=== PATIENT | male | born 1980 | race Caucasian/White ===

== ENCOUNTER 2020-09-19 12:14 | Emergency (ER) | payer OTHER ==
[2020-09-19 12:18] VITALS: RESP 18
[2020-09-19] MEDS ORDERED: HYDROmorphone 0.5 MG/0.5 ML SYRINGE IVP STA (12:29)
[2020-09-19] MEDS ORDERED: ONDANSETRON 4 MG/2 ML VIAL IVP STA (12:29)
[2020-09-19] MEDS ORDERED: SODIUM CHLORIDE 0.9% 1,000 ML IV STA (12:29)
--- NOTE | 2020-09-19 12:40 | ED ---
General Adult HPI - General Chief complaint: Abdominal Pain Stated complaint: abd pain/vomiting Source: patient Mode of arrival: ambulatory Limitations: no limitations - History of Present Illness Initial comments: 40-year-old male with a past medical history of hyperlipidemia, hypertension, obesity presents to the emergency room for a chief complaint of abdominal pain. Patient reports that for the past 3 or 4 days he has had right upper abdominal pain. Patient states that this worsens after he eats. Patient ate steak for dinner last night and a turkey sandwich today. Today he did experience an episode of nonbilious nonbloody vomiting as well. Minimal diarrhea. No sig nificant lower abdominal pain. Patient has a history of appendectomy in 2004. Denies fevers. Patient has no other complaints at this time including shortness of breath, chest pain, headache, or visual changes. - Related Data Previous Rx's Medication Instructions Recorded Famotidine [Pepcid] 20 mg PO BID #28 tablet 09/19/20 Ondansetron [Zofran ODT] 4 mg PO Q8HR PRN #15 tab 09/19/20 Allergies Allergy/AdvReac Type Severity Reaction Status Date / Time No Known Allergies Allergy Verified 09/19/20 12:17 Review of Systems ROS Statement: Those systems with pertinent positive or pertinent negative responses have been documented in the HPI. ROS Other: All systems not noted in ROS Statement are negative. Past Medical History Past Medical History: Hyperlipidemia, Hypertension History of Any Multi-Drug Resistant Organisms: None Reported Past Surgical History: Appendectomy Past Psychological History: No Psychological Hx Reported Smoking Status: Never smoker Past Alcohol Use History: None Reported Past Drug Use History: None Reported General Exam Limitations: no limitations General appearance: alert, in no apparent distress Head exam: Present: atraumatic Eye exam: Present: normal appearance, PERRL, EOMI. Absent: scleral icterus ENT exam: Present: normal exam, mucous membranes moist Neck exam: Present: normal inspection, full ROM. Absent: tenderness Respiratory exam: Present: normal lung sounds bilaterally. Absent: respiratory distress, wheezes Cardiovascular Exam: Present: regular rate, normal rhythm, normal heart sounds GI/Abdominal exam: Present: soft, tenderness (Right upper quadrant abdominal t enderness. no lower abdominal tenderness), normal bowel sounds. Absent: distended, guarding, rebound Neurological exam: Present: alert Course Vital Signs 09/19/20 09/19/20 12:15 13:35 Temperature 98.4 F 97.9 F Pulse Rate 92 79 Respiratory 18 18 Rate Blood Pressure 137/96 120/72 O2 Sat by Pulse 93 L 97 Oximetry EKG Findings - EKG Comments: EKG Findings:: Normal sinus rhythm, ventricular rate 79, IN interval 154, QTc 394 Medical Decision Making - Medical Decision Making Vitals stable. HPI significant for postprandial right upper quadrant pain with associated vomiting. Physical exam does reveal right upper quadrant tenderness as well as mild epigastric tenderness. No significant lower abdominal tenderness. CBC CMP unremarkable. Minimal transaminitis noted. Amylase and lipase are normal. Urinalysis is negative. Ultrasound shows a normal right upper quadrant. Gallbladder is within normal limits. Patient reevaluated after pain medications and symmetric better. At this time I'm recommending following up with the surgeon in trying outpatient medications. However if his pain worsens or he develops fevers I discussed strict return parameters. He is agreeable to this.I discussed this case with attending Dr. Skinner who agrees with this assessment and treatment plan. - Lab Data Result diagrams: 09/19/20 12:36 09/19/20 12:36 Lab Results 09/19/20 09/19/20 09/19/20 Range/Units 12:36 12:36 12:36 WBC 10.0 (3.8-10.6) k/uL RBC 5.24 (4.30-5.90) m/uL Hgb 15.7 (13.0-17.5) gm/dL Hct 46.9 (39.0-53.0) % MCV 89.5 (80.0-100.0) fL MCH 29.9 (25.0-35.0) pg MCHC 33.4 (31.0-37.0) g/dL RDW 13.0 (11.5-15.5) % Plt Count 337 (150-450) k/uL MPV 8.0 Neutrophils % 75 % Lymphocytes % 17 % Monocytes % 6 % Eosinophils % 1 % Basophils % 1 % Neutrophils # 7.5 (1.3-7.7) k/uL Lymphocytes # 1.7 (1.0-4.8) k/uL Monocytes # 0.6 (0-1.0) k/uL Eosinophils # 0.1 (0-0.7) k/uL Basophils # 0.1 (0-0.2) k/uL Sodium 135 L (137-145) mmol/L Potassium 4.5 (3.5-5.1) mmol/L Chloride 99 (98-107) mmol/L Carbon Dioxide 25 (22-30) mmol/L Anion Gap 11 mmol/L BUN 17 (9-20) mg/dL Creatinine 1.16 (0.66-1.25) mg/dL Est GFR (CKD-EPI)AfAm >90 (>60 ml/min/1.73 sqM) Est GFR (CKD-EPI)NonAf 80 (>60 ml/min/1.73 sqM) Glucose 154 H (74-99) mg/dL Calcium 9.8 (8.4-10.2) mg/dL Total Bilirubin 0.7 (0.2-1.3) mg/dL AST 43 (17-59) U/L ALT 62 H (4-49) U/L Alkaline Phosphatase 55 (38-126) U/L Total Protein 7.8 (6.3-8.2) g/dL Albumin 4.6 (3.5-5.0) g/dL Amylase 44 (30-110) U/L Lipase 228 (23-300) U/L Urine Color Yellow Urine Appearance Clear (Clear) Urine pH 7.0 (5.0-8.0) Ur Specific [place] 1.012 (1.001-1.035) Urine Protein Negative (Negative) Urine Glucose (UA) Negative (Negative) Urine Ketones Negative (Negative) Urine Blood Negative (Negative) Urine Nitrite Negative (Negative) Urine Bilirubin Negative (Negative) Urine Urobilinogen <2.0 (<2.0) mg/dL Ur Leukocyte Esterase Negative (Negative) Disposition Clinical Impression: Abdominal pain Disposition: HOME SELF-CARE Condition: Good Instructions (If sedation given, give patient instructions): Abdominal Pain (ED), Low Fat Diet (ED) Additional Instructions: Please take medications as directed. Please follow-up with general surgeon calling today for earliest appointment. However if you start to develop worsening pain, are unable to keep down liquids, or develop fevers return to the emergency room. Prescriptions: Famotidine [Pepcid] 20 mg PO BID #28 tablet Ondansetron [Zofran ODT] 4 mg PO Q8HR PRN #15 tab PRN Reason: Nausea Is patient prescribed a controlled substance at d/c from ED?: No Referrals: Andrew Lunsford MD [Primary Care Provider] - 1-2 days Gil Encinas MD [STAFF PHYSICIAN] - 1-2 days Time of Disposition: 13:48
[2020-09-19 13:10] LABS: Basophils # (A) 0.1 k/uL (0-0.2); Basophils % (A) 1 %; Eosinophils # (A) 0.1 k/uL (0-0.7); Eosinophils % (A) 1 %; HCT 46.9 % (39.0-53.0); HGB 15.7 gm/dL (13.0-17.5); Lymphocytes # (A) 1.7 k/uL (1.0-4.8); Lymphocytes % (A) 17 %; MCH 29.9 pg (25.0-35.0); MCHC 33.4 g/dL (31.0-37.0); MCV 89.5 fL (80.0-100.0); Monocytes # (A) 0.6 k/uL (0-1.0); Monocytes % (A) 6 %; Neutrophils # (A) 7.5 k/uL (1.3-7.7); Neutrophils % (A) 75 %; Platelet Count 337 k/uL (150-450); RBC 5.24 m/uL (4.30-5.90)
[2020-09-19 13:15] LABS: Appearance,Urine Clear (Clear); Bilirubin,Urine Negative (Negative); Blood,Urine Negative (Negative); Color,Urine Yellow; Glucose,Urine (UA) Negative (Negative); Ketones,Urine Negative (Negative); Leukocyte Esterase,Urine Negative (Negative); Nitrite,Urine Negative (Negative); Protein,Urine Negative (Negative); Specific Gravity,Urine 1.012 (1.001-1.035); Urobilinogen,Urine <2.0 mg/dL (<2.0)
[2020-09-19 13:18] LABS: ALT 62 U/L (4-49); AST 43 U/L (17-59); African American GFR (CKD) >90 (>60 ml/min/1.73 sqM); Albumin 4.6 g/dL (3.5-5.0); Alkaline Phosphatase 55 U/L (38-126); Amylase 44 U/L (30-110); Anion Gap 11 mmol/L; Blood Urea Nitrogen 17 mg/dL (9-20); Calcium 9.8 mg/dL (8.4-10.2); Carbon Dioxide 25 mmol/L (22-30); Chloride 99 mmol/L (98-107); Glucose 154 mg/dL (74-99); Lipase 228 U/L (23-300); Non-African American GFR(CKD) 80 (>60 ml/min/1.73 sqM); Potassium 4.5 mmol/L (3.5-5.1); Sodium 135 mmol/L (137-145); Total Bilirubin 0.7 mg/dL (0.2-1.3); Total Protein 7.8 g/dL (6.3-8.2)
[2020-09-19 13:38] VITALS: BP 120/72; PULSE 79; TEMP 97.9
--- NOTE | 2020-09-19 13:39 | US ---
EXAMINATION TYPE: US gallbladder DATE OF EXAM: 09/19/2020 COMPARISON: NONE CLINICAL HISTORY: pain, post prandial. pain after eating EXAM MEASUREMENTS: Liver Length: 15.2 cm Gallbladder Wall: 0.2 cm CBD: 0.3 cm Right Kidney: 10.4 x 5.3 x 5.3 cm Pancreas: not seen due to bowel gas Liver: intercostal imaging only due to habitus and bowel gas Gallbladder: wnl Evidence for sonographic Torres's sign: no CBD: wnl Right Kidney: wnl IMPRESSION: 1. Normal right upper quadrant ultrasound as visualized
== END 2020-09-19 14:07 | disposition home or self-care (01) ==
LOC: EC 12:14
DX: R10.811 Right upper quadrant abdominal tenderness (principal); R74.01 Elevation of levels of liver transaminase levels; R10.816 Epigastric abdominal tenderness; R11.10 Vomiting, unspecified; Z90.49 Acquired absence of other specified parts of digestive tract
CPT/HCPCS: 36415; 93005; 80053; 82150; 83690; 84484; 85025; 81003; 76705; 99284; 96374; 96375; 96361; J2405; J1170

== ENCOUNTER → 2020-10-10 | Outpatient (CLI) | payer OTHER ==
--- NOTE | 2020-10-11 10:09 | CT ---
EXAMINATION TYPE: CT sinus wo con DATE OF EXAM: 10/10/2020 COMPARISON: None HISTORY: Sinusitis. More issues with LT side. CT DLP: 468.60 mGycm. Automated Exposure Control for Dose Reduction was Utilized. TECHNIQUE: CT scan of the sinuses is performed without contrast, axial images are obtained, coronal r eformatted images are also reviewed. FINDINGS: The lobular soft tissue attenuation present within the antrum of the right maxillary sinus may represent a mucous retention cyst measuring approximately 2.1 cm. Some minimal inflammatory mason es, mucoperiosteal thickening present in the dependent portion of the left maxillary sinus. The ostio meatal units are patent. Visualized portion of mastoid air cells show no abnormal opacification. The globes are intact bilate rally. IMPRESSION: Correlate for chronic sinusitis..
== END ==
LOC: RADCTMAIN 15:57
PROVIDERS: ATTEND Otolaryngology
DX: J32.9 Chronic sinusitis, unspecified (principal)
CPT/HCPCS: 70486

== ENCOUNTER → 2020-11-28 | Outpatient (CLI) | payer OTHER ==
--- NOTE | 2020-11-28 10:47 | US ---
EXAMINATION TYPE: US abdomen complete DATE OF EXAM: 11/28/2020 COMPARISON: Gallbladder ultrasound September 19, 2020 CLINICAL HISTORY: R10.13 Epigastric pain. epigastric pain EXAM MEASUREMENTS: Liver Length: 17.2 cm Gallbladder Wall: 0.3 cm Spleen: 11.9 cm Right Kidney: 11.0 x 5.2 x 4.9 cm Left Kidney: 11.6 x 5.7 x 4.8 cm technical limitations due to patient's body habitus and overlying bowel content Pancreas: Obscured by bowel gas Liver: appears wnl as visualized Gallbladder: no evidence of stones Evidence for sonographic Torres's sign: no CBD: Obscured by overlying bowel gas Spleen: wnl Right Kidney: no evidence of hydronephrosis Left Kidney: no evidence of hydronephrosis Upper IVC: wnl Abd Aorta: wnl The visualized liver is homogenous. The intrahepatic portion of the IVC and visualized abdominal aor ta are within normal limits. There is no evidence of shadowing mobile cholelithiasis. Common bile d uct is not identified due to overlying bowel gas. No intrahepatic biliary dilatation noted. Pancreas obscured by overlying bowel gas on the initial images saved. The spleen is unremarkable. Kidneys ar e symmetric and free of hydronephrosis. No renal lesions are seen on images saved. IMPRESSION: Suboptimal study but no new or acute findings are evident.
== END | disposition home or self-care (01) ==
LOC: RADUSWWP 07:43
PROVIDERS: ATTEND Family Medicine
DX: R10.13 Epigastric pain (principal)
CPT/HCPCS: 76700

== ENCOUNTER → 2020-12-20 | Outpatient (CLI) | payer OTHER ==
[2020-12-25 06:30] LABS: Calprotectin, Stool 29.4 mcg/g (<50)
== END | disposition home or self-care (01) ==
LOC: LABWHC1 12:00
PROVIDERS: ATTEND Family Medicine
DX: I10 Essential (primary) hypertension (principal); R73.9 Hyperglycemia, unspecified; R19.7 Diarrhea, unspecified
CPT/HCPCS: 36415; 82272; 82550; 82656; 83036; 83630; 83993; 87045; 87046; 87324

== ENCOUNTER → 2021-01-02 | Outpatient (CLI) | payer OTHER | END | disposition home or self-care (01) | LOC: LABPAT 11:16 | PROVIDERS: ATTEND Surgery | DX: Z11.52 Encounter for screening for COVID-19 (principal) | CPT/HCPCS: U0003; C9803; U0005 ==

== ENCOUNTER 2021-01-04 12:53 | Day surgery (SDC) | payer OTHER ==
[2021-01-02 09:36] VITALS: BMI 47.5
[~2021-01-04 12:53] MED LIST: LACTATED RINGERS 1,000 ML IV SCH
[2021-01-04 13:23] VITALS: RESP 18; TEMP 97.1
[2021-01-04] MEDS ORDERED: IV FLUID CONTINUATION 1,000 ML IV ONE (13:30)
[2021-01-04] MEDS ORDERED: PROPOFOL 10 MG/ML 20 ML VIAL IV ONE (13:52)
[2021-01-04] MEDS ORDERED: LIDOCAINE 1% INJ 10MG/ML (20 ML MDV) ONE (13:52)
--- NOTE | 2021-01-04 14:06 | P.PCN ---
Date of Procedure: 01/04/21 Preoperative Diagnosis: Epigastric pain Postoperative Diagnosis: Gastritis Duodenitis Procedure(s) Performed: EGD with biopsy Anesthesia: SHUKRI Surgeon: Davy Denise Pathology: other (Biopsies of esophagus, antrum, duodenum) Condition: stable Disposition: same day Indications for Procedure: 40-year-old male with recent escalation in symptoms of gastric esophageal reflux disease along with epigastric pain. He presents for upper endoscopy. Risks, benefits and alternatives to the procedure were provided to the patient. He did provide consent prior to attending the endoscopy suite. Operative Findings: Inflammatory changes of the antrum and duodenum Description of Procedure: The patient was brought to the endoscopy suite and placed in left lateral decubitus position and adequate sedation was achieved using conscious sedation. A bite block was placed in an endoscope was placed in the oropharynx and advanced under endoscopic visualization. The endoscope was advanced through the esophagus into the stomach, through the gastric antrum and into the pylorus. The third portion of the duodenum was visualized. The endoscope was then slowly withdrawn. The first portion of the duodenum was noted to have inflammatory changes. Biopsies were taken. The antrum was noted to have inflammatory changes and multiple biopsies were taken. The gastric body distended normally and the gastric folds appeared normal and flattened with insufflation. A retroflexed view of the fundus and GE junction revealed a mild hiatal hernia. The esophagus appeared endoscopically normal. Biopsies were taken of the GE junction. Excess air was removed and the scope withdrawn. The procedure was completed at this point and the patient was sent to post anesthesia care unit in stable condition.
[2021-01-04 14:41] VITALS: BP 118/77; PULSE 77
== END 2021-01-04 14:48 | disposition home or self-care (01) ==
LOC: ORWHC2ENDO 12:53
PROVIDERS: ATTEND Surgery
DX: K31.89 Other diseases of stomach and duodenum (principal); K29.50 Unspecified chronic gastritis without bleeding; K29.80 Duodenitis without bleeding; K44.9 Diaphragmatic hernia without obstruction or gangrene; K21.9 Gastro-esophageal reflux disease without esophagitis; I10 Essential (primary) hypertension; E78.00 Pure hypercholesterolemia, unspecified; E78.5 Hyperlipidemia, unspecified; M54.9 Dorsalgia, unspecified; M54.2 Cervicalgia; G43.909 Migraine, unspecified, not intractable, without status migrainosus; G47.30 Sleep apnea, unspecified; Z90.89 Acquired absence of other organs; Z98.890 Other specified postprocedural states; Z81.1 Family history of alcohol abuse and dependence; Z82.49 Family history of ischemic heart disease and other diseases of the circulatory system; Z84.2 Family history of other diseases of the genitourinary system; Z83.42 Family history of familial hypercholesterolemia; Z84.1 Family history of disorders of kidney and ureter; Z82.61 Family history of arthritis; Z83.6 Family history of other diseases of the respiratory system; Z82.5 Family history of asthma and other chronic lower respiratory diseases; Z81.8 Family history of other mental and behavioral disorders; Z79.899 Other long term (current) drug therapy; Z79.1 Long term (current) use of non-steroidal anti-inflammatories (NSAID)
CPT/HCPCS: 88305; 88342; 43239; J2001; J2704

== ENCOUNTER → 2021-06-13 | Outpatient (CLI) | payer BC ==
--- NOTE | 2021-06-13 19:52 | CONS ---
CONSULTATION DATE OF SERVICE: 06/13/2021 This 40-year-old gentleman has been evaluated in [facility] for possible obstructive sleep apnea-hypopnea syndrome. HISTORY OF PRESENT ILLNESS/SLEEP-WAKE EVALUATION: Patient's usual sleep schedule on weekdays is from 7:30 p.m. until 2:45 a.m., on weekends from 10 p.m. until 9 a.m. He does have some problems with falling asleep, although no TV in bedroom. He usually sleeps on the stomach position. He snores and wakes up from sleep 3 times with nocturia, episodes of gasping for air, sweating, restless leg symptoms, positive history of palpitations and heartburn at night. No history of hypnagogic hallucinations, sleep paralysis or cataplexy. In the morning the patient wakes up tired, has difficulties paying attention, falling asleep during the day, worries about his sleep, has problems with memory, concentration, irritability, anxiety. Henniker Sleepiness Scale is 7, which is in normal range, but the patient takes naps up to 2 times a day around 1 p.m. and 2 p.m. No vivid dreams during naps. PAST MEDICAL HISTORY: Positive for hypertension, acid reflux, headaches, hyperlipidemia, pre-diabetes. PAST SURGICAL HISTORY: Appendectomy, right hand surgery. SOCIAL HISTORY: Negative for smoking. Alcohol consumption occasional. MEDICATIONS: 1. Prilosec 20 mg once a day. 2. Lisinopril 10 mg once a day. FAMILY HISTORY: Lung problems, asthma, stroke. REVIEW OF SYSTEMS: Multiple awakenings from sleep, tiredness and sleepiness during the day. No fevers. No double vision. No recent chest pain. No shortness of breath. No abdominal pain. No bleeding episodes. No blood in the urine. No seizure episodes. PHYSICAL EXAMINATION: GENERAL: Pleasant gentleman without distress. VITAL SIGNS: BP 126/67, HR 75, RR 15, height 5 feet 6 inches, weight 301.8, body mass index 48.5, temperature 97.9, oxygen saturation at room air 96%. HEENT: PERRLA, EOMI, evaluation of oropharynx showed tongue protrudes midline. Low position of soft palate; Mallampati III to IV. NECK: Supple, no JVD. Thyroid is not palpable. Wide neck; 21 inches in circumference. LUNGS: Clear to percussion and to auscultation. Good air exchange. No wheezing or rhonchi. HEART: S1, S2 regular. No murmurs, gallops, or rubs. ABDOMEN: Obese. EXTREMITIES: No clubbing or cyanosis. RADIO HOST: Awake, alert, and oriented X3. Cranial nerves 2 to 7 intact. There is no fasciculation or atrophy. noted. No focal deficits observed. IMPRESSION: 1. Snoring, multiple awakenings from sleep with episodes of gasping for air, low position of soft palate, Mallampati III to IV, extremely wide neck, 21 inches in circumference; obstructive sleep apnea-hypopnea syndrome. 2. Obesity; body mass index 48.5. 3. Acid reflux. 4. Hypertension. 5. Headaches. 6. History of pre-diabetes. 7. Status post appendectomy. 8. Status post right hand surgery. 9. Hyperlipidemia. PLAN: 1. Home sleep apnea test for evaluation of patient's breathing during sleep. 2. CPAP/BiPAP titration if sleep study confirms obstructive sleep apnea-hypopnea syndrome. 3. Preferable position during sleep on the side. 4. No driving if patient feels any sleepiness. 5. I will see patient for follow up visit to explain results of testing and following plan. Thank you very much for referring this patient for consultation. Sincerely, Ramses Mensah MD, PhD, FAASM Diplomat of [employer] Sleep Medicine Board of [employer] Manager of [facility] [place] MMODL / IJN: [id number] /
== END | disposition home or self-care (01) ==
LOC: SLEEP 13:29
PROVIDERS: ATTEND Internal Medicine
DX: G47.33 Obstructive sleep apnea (adult) (pediatric) (principal); E66.9 Obesity, unspecified; Z68.42 Body mass index [BMI] 45.0-49.9, adult; K21.9 Gastro-esophageal reflux disease without esophagitis; I10 Essential (primary) hypertension; R51.9 Headache, unspecified; E78.5 Hyperlipidemia, unspecified; Z90.49 Acquired absence of other specified parts of digestive tract; Z98.890 Other specified postprocedural states
CPT/HCPCS: 99211